=== PATIENT | female | born 1995 | race Caucasian/White ===

== ENCOUNTER 2017-03-03 21:06 | Emergency (ER) | payer OTHER ==
--- NOTE | ~2017-03-03 | ER ---
PATIENT'S NAME: RUPERTO HYDE [facility] AGE: 22 Y [address] ROOM: [place] [address] LOCATION: [facility] ADMIT DATE: 03/03/2017 ER/Outpatient Report DISCHARGE DATE: 03/03/2017 FAMILY PHYSICIAN: PHYSICIAN, NO ATTENDING PHYSICIAN: Adonis Guzman Time of Arrival: 2106 hours. Time of Evaluation: 2115 hours. CHIEF COMPLAINT: Possible urinary tract infection. HISTORY OF PRESENT ILLNESS: This 22-year-old female presents to the ER. She states she feels like she has urinary tract infection. She states she has had them in the past. She states her symptoms started around 3 days ago. She states she has a little bit of back discomfort with it. She has not been running any fevers. No chills. No troubles with bowel movements. The patient denies any other problems at this time. She did take AZO this morning to take some of her symptoms away. ALLERGIES: NO KNOWN ALLERGIES. MEDICATIONS: Please see medication list in the nurse's notes. PAST MEDICAL HISTORY: History of urinary tract infections. PAST SURGERIES: Tonsillectomy. SOCIAL HISTORY: Drinks alcohol on the weekends. REVIEW OF SYSTEMS: All systems were reviewed and were negative with the exception of those discussed in the HPI. PHYSICAL EXAMINATION: VITAL SIGNS: Height 5 feet 9 inches, stated; weight 66.1 kilograms, taken; blood pressure is 147/89; pulse 69; respirations 16; temperature 98.3 degrees tympanically; saturations 100% on room air. Bentley Coma score is 15. GENERAL: Alert, calm, well-developed female, in no acute distress. HEENT: Head, normocephalic. Eyes; pupils are equal and reactive to light. PATIENT'S NAME: RUPERTO HYDE [facility] AGE: 22 Y [address] ROOM: [place] [address] LOCATION: [facility] ADMIT DATE: 03/03/2017 ER/Outpatient Report DISCHARGE DATE: 03/03/2017 FAMILY PHYSICIAN: PHYSICIAN, NO ATTENDING PHYSICIAN: Adonis Guzman She does display moist mucous membranes. LUNGS: Clear to auscultation bilaterally. HEART: Regular rate and rhythm. ABDOMEN: Soft. She has mild tenderness in the suprapubic area with palpation. She has good bowel sounds throughout. No masses were palpated. EXTREMITIES: No clubbing, cyanosis, or edema. Has full range of motion of all limbs. LABORATORY DATA AND X-RAYS: Urinalysis; leukocytes 500, nitrites positive, protein 100, blood 250. UA micro; white blood cells full field, red blood cells 20 to 50, epithelial 2 to 5, bacteria few. IMPRESSION: Urinary tract infection. ASSESSMENT AND PLAN: We will send the patient's urine off for culture. I will place her on Bactrim to use as directed. She needs to continue to push fluids. She may continue AZO if needed for few more days. She needs to take Tylenol or ibuprofen as needed and follow up with her primary care physician if she is not improved. The patient understands and agrees with care. JACQUELYN GREY PA-C FOR DO RANJANA VELAZQUEZ/remi /[id number] d: [birth year] t: 03/17/171911, OUTPATIENT REPORT
[2017-03-03 21:34] LABS: BLOOD URINE 250 /UL (NEGATIVE); COLOR URINE YELLOW (YELLOW); GLUCOSE URINE NEGATIVE (NEGATIVE); KETONE URINE NEGATIVE (NEGATIVE); LEUKOCYTES URINE 500 /UL (NEGATIVE); NITRITE URINE POSITIVE (NEGATIVE); PH URINE 6.5 (4.0-8.0); PROTEIN URINE 100 mg/dL (NEGATIVE); TURBIDITY URINE 4+ (CLEAR); UROBILINOGEN URINE 4 mg/dL (NORMAL)
[2017-03-03 22:05] LABS: WBC URINE FULL FIELD #/HPF (NEGATIVE)
[2017-03-03 22:06] LABS: AMORPHOUS URINE 1+ (NEGATIVE); BACTERIA URINE FEW (NEGATIVE); RBC URINE 20-50 #/HPF (NEGATIVE)
== END 2017-03-03 21:56 | disposition disaster alternative care site (69) ==
LOC: GMED 21:06
PROVIDERS: Physician Assistant Medical
DX: N39.0 Urinary tract infection, site not specified (principal); Z90.89 Acquired absence of other organs